=== PATIENT | male | born 1965 | race Caucasian/White ===

== ENCOUNTER 2024-08-01 01:12 | Emergency (ER) | payer SELFPAY ==
[2024-08-01 01:16] VITALS: BP 157/109; PULSE 99; RESP 16; TEMP 36.6; O2SAT 99
--- NOTE | 2024-08-01 01:50 | W.ED.GENAD ---
Discharge Plan Disposition Patient Disposition: Home Condition: Good Discharge Details Clinical Impression: Bilateral chronic knee pain Primary Care Provider: None,None ED Provider: Reji Castro Home Meds and New Rx's Prescriptions: New lidocaine [Lidoderm] 5 % adhesive patch,medicated 1 patch Topical Q24H Qty: 15 0RF Discharge Instructions Instructions: Chronic Knee Pain Additional Instructions: As we discussed together, at this time there does not appear to be any clinical evidence of acute fracture however there is likely significant disease in your knee chronically. Please continue to follow-up closely with your transcription specialist at [facility]. Please apply the Voltaren gel to your knees every 6-8 hours. Please apply the Lidoderm patches every 24 hours to your knees. Please use the hinged knee braces at all times to help maintain stability in your knees and decrease likelihood of dislocation of your patella. It would be beneficial to continue with your physical therapist for strengthening of your legs and knees. As we discussed, I have included the phone number for Dr. Parekh's office. If you find that you are not satisfied with the plan at [facility], then this would be an alternative for transcription specialist. If you notice any worsening of your symptoms, or any new symptoms such as vomiting, diarrhea, fever, chills, shortness of breath, chest pain, numbness, weakness, or fainting , please return immediately to the emergency department for reevaluation. Please follow up with your primary care provider as soon as possible for reassessment and reevaluation. As always, it was a pleasure participating in your medical care today. Referrals: Silvestre Parekh MD [ [facility] STAFF PHYSICIAN] - [facility] General Date/Time Provider Initiated Documentation: 08/01/24 01:15. [facility] Narrative: This is a 58-year-old male with a past medical history of per patient, injury years ago to his knees after being crushed at work. Subsequent 4 surgeries, 2 to each knee for tendon relocation and pain management (most recent surgery was performed by Dr. Millan from [place]), history of bilateral patellar instability, who presents today for knee pain. Current pain has been present per the patient for the last 5 years, he states that Dr. Millan did not feel that there were any further surgical options for the patient. He states that he has seen transcription specialist at [facility], who recommended [facility] transcription specialist. Patient states that [facility] orthopedic thick specialists were not able to provide surgical alternatives in a timely fashion, and he has been referred to [place] [facility]. He has not yet had a follow-up date with them. He takes occasional Tylenol and Aleve for his pain. Pain is made worse when he walks or bends his knees. He noticed the regional crepitus and pops in his knees. He denies any recent falls or trauma. He does have bilateral knee braces, but he states that he is currently transitioning for his housing status and his knee braces are deep in storage. He presents [facility] for evaluation of his knees. He denies any acute changes recently. No other complaints. No numbness or tingling. No fever or chills. He denies any IV or illicit drug use. He denies any injections recently. He does use heating pad packs occasionally and this gives some improvement. He feels that ice makes the pain worse. Most recent x-ray imaging was about 1 year ago at [facility]. No acute injuries since then. Related Data Home Medications ?Medication ?Instructions ?Recorded ?Confirmed lidocaine 5 % topical patch 1 patch topical Q24H #15 ea 08/01/24 (Lidoderm) Previous Rx's ?Medication ?Instructions ?Recorded lidocaine 5 % topical patch 1 patch topical Q24H #15 ea 08/01/24 (Lidoderm) Allergies Allergy/AdvReac Type Severity Reaction Status Date / Time sulfamethoxazole (From Allergy Mild Skin Rash Verified 08/01/24 01:22 Bactrim) trimethoprim (From Bactrim) Allergy Mild Skin Rash Verified 08/01/24 01:22 General Stated Complaint: Orthopedic MICHELE: 4 Exam Narrative Exam Narrative: 1.Const: Well-nourished, Well-developed, appearing stated age 2.Eyes: PERRL, no conjunctival injection, and symmetrical lids. 3.ENT: Atraumatic external nose and ears. Moist MM. Neck: Symmetric, trachea midline, No thyromegaly. 4.CVS: +S1/S2, Peripheral pulses 2+ and equal in all extremities. Brisk capillary refill in all extremities. 5.RESP: Unlabored respiratory effort. Clear to auscultation bilaterally. No wheezes rales or rhonchi 6.GI: Soft, Nontender/Nondistended, No hepatosplenomegaly. No guarding or rebound. 7.MSK: Normocephalic/Atraumatic, Extremities w/o deformity. No cyanosis or clubbing, Left knee: The knee is stable to varus, valgus, and anterior drawer stress. No deformity. Patellar does appear slightly mobile but does not dislocate on exam.. Bee test is positive for very mild pain. Patient is able to walk without significant difficulty. No edema or warmth to the joint. Minimal subjective tenderness over the pretibial spaces. Right knee: The knee is stable to varus, valgus, and anterior drawer stress. No deformity. Patellar does appear slightly mobile but does not dislocate on exam.. Bee test is positive for very mild pain. Patient is able to walk without significant difficulty. No edema or warmth to the joint. Minimal subjective tenderness over the pretibial spaces. Knee exams are essentially equivalent and identical 8.Skin: Warm, Dry. No rashes or lesions. 9.Neuro: specification consultant II-XII grossly intact. Sensation grossly intact, no focal neurologic deficits. 10.Psych: (AAO) x3. Appropriate mood and affect Course Vital Signs Vital signs: Vital Signs Temperature 36.6 C 08/01/24 01:16 Pulse 99 H 08/01/24 01:16 Respiratory Rate 16 08/01/24 01:16 Blood Pressure 157/109 H 08/01/24 01:16 Pulse Oximetry 99 08/01/24 01:16 Temperature 36.6 C 08/01/24 01:16 Temperature Source Oral 08/01/24 01:16 Pulse 99 H 08/01/24 01:16 Respiratory Rate 16 08/01/24 01:16 Blood Pressure 157/109 H 08/01/24 01:16 Blood Pressure Position Supine 08/01/24 01:16 Pulse Oximetry 99 08/01/24 01:16 Oxygen Delivery Method Room Air 08/01/24 01:16 Oxygen Flow Rate 0 08/01/24 01:16 Pain Level 8 08/01/24 01:24 Medical Decision Making This is a 58-year-old male with a past medical history of per patient, injury years ago to his knees after being crushed at work. Subsequent 4 surgeries, 2 to each knee for tendon relocation and pain management (most recent surgery was performed by Dr. Millan from [place]), history of bilateral patellar instability, who presents today for knee pain. Current pain has been present per the patient for the last 5 years, he states that Dr. Millan did not feel that there were any further surgical options for the patient. He states that he has seen transcription specialist at [facility], who recommended [facility] transcription specialist. Patient states that [facility] orthopedic thick specialists were not able to provide surgical alternatives in a timely fashion, and he has been referred to [place] [facility] [facility]. He has not yet had a follow-up date with them. He takes occasional Tylenol and Aleve for his pain. Pain is made worse when he walks or bends his knees. He noticed the regional crepitus and pops in his knees. He denies any recent falls or trauma. He does have bilateral knee braces, but he states that he is currently transitioning for his housing status and his knee braces are deep in storage. He presents [facility] for evaluation of his knees. He denies any acute changes recently. No other complaints. No numbness or tingling. No fever or chills. He denies any IV or illicit drug use. He denies any injections recently. He does use heating pad packs occasionally and this gives some improvement. He feels that ice makes the pain worse. Most recent x-ray imaging was about 1 year ago at [facility]. No acute injuries since then. Physical exam demonstrates equivalent knees bilaterally. The knee is stable to varus, valgus, and anterior drawer stress. No deformity. Patellar does appear slightly mobile but does not dislocate on exam.. Bee test is positive for very mild pain. Patient is able to walk without significant difficulty. No edema or warmth to the joint. Minimal subjective tenderness over the pretibial spaces. With no acute evidence of infection, no trauma to suggest new osseous abnormality, no evidence of significant joint instability aside for slightly loose patella, I do not feel that there is any benefit to getting additional x-ray imaging at this time. I did offer this to the patient, but he has declined and will defer to his previous x-rays performed at [facility]. Unfortunately MRI is not available at this time, and physical exam findings are inconsistent with tibial plateau fracture, there is no indication for CT imaging. No redness or warmth to suggest cellulitis or septic joint. No significant instability to suggest acute tendon disruption. No evidence of vascular compromise, DVT, or acute gout. I do feel that the patient would benefit from wearing his braces, and so we will provide him with 2 additional ones at this time. We will offer diclofenac gel topically for continued arthritic pain relief, and we will apply Lidoderm patches to both knees. Symptoms appear consistent with chronic knee osteoarthritis, worsened by chronic patellar instability which will be remedied with braces. I did offer a referral to our transcription specialist, but the patient has declined referral right now but we will provide him with a phone number for them if he seeks this in the future. Additionally I encouraged the patient to follow-up closely with his transcription specialist at [place]. Otherwise with no evidence of an acute pathology, I do not feel that any further diagnostics are emergently indicated at this time. Patient agrees with plan, and will continue supportive therapy. Discussed red flags for which to return. I have extensively reviewed the treatment plan and discharge instructions with the patient. I have addressed all patient concerns at this time. The patient was made aware of what symptoms to monitor for that would warrant a return to the emergency department. Discussed the plan with the patient, they demonstrate verbal understanding and agreement with our assessment and plan at this time. The documentation in this chart was dictated using [employer] dictation software. Please excuse any dictation errors. Quality:SDOH Health Related Social Needs: No Data to Display PFSH All Active Problems (Updated 08/01/24 @ 01:53 by Reji Castro DO) Bilateral chronic knee pain (Acute) Social History Smoking/Tobacco Use Status: Current every day Tobacco Type: cigarettes Smoking risk assessment performed?: Yes Alcohol Intake: former Substance use type: does not use
[2024-08-01] MEDS: Diclofenac 1% Gel 100 GM TUBE TP (02:03)
[2024-08-01] MEDS: Lidocaine 5% Patch 2 PATCH TP (02:04)
--- NOTE | 2024-08-01 15:00 | NUR.NOTE ---
Access chart to get the discharge diagnosis for [facility] billing requisition and to print the facesheet to go with the requisition. Nursing Note:
== END 2024-08-01 02:11 | disposition home or self-care (01) ==
LOC: ER 02:22
PROVIDERS: Emergency Provider Student in an Organized Health Care Education/Training Program
DX: M25.562 Pain in left knee (principal); M25.561 Pain in right knee; F17.210 Nicotine dependence, cigarettes, uncomplicated
CPT/HCPCS: 99283